=== PATIENT | female | born 1970 | race African-American/Black ===

== ENCOUNTER 2021-08-02 20:47 | Emergency (ER) | payer MEDICARE, MEDICAID ==
[~2021-08-02] VITALS: Ht 165.1 cm; Wt 90.0 kg
[2021-08-02] MEDS ORDERED: LIDOCAINE 5% PATCH TOP SCH (22:15)
[2021-08-02] MEDS ORDERED: ACETAMINOPHEN 325MG TABLET PO ONE (22:15)
[2021-08-02] MEDS ORDERED: BACL-141 MT (22:40)
[2021-08-02] MEDS ORDERED: IBUP-2029 MT (22:40)
[2021-08-02] MEDS ORDERED: LIDO700A15 TP (22:40)
[2021-08-02 22:47] VITALS: BP 173/93
== END 2021-08-02 23:59 | disposition home or self-care (01) ==
LOC: ER 20:47
DX: S46.911A Strain of unspecified muscle, fascia and tendon at shoulder and upper arm level, right arm, initial encounter (principal); I10 Essential (primary) hypertension; X58.XXXA Exposure to other specified factors, initial encounter; Y93.9 Activity, unspecified; Y92.9 Unspecified place or not applicable; Z90.710 Acquired absence of both cervix and uterus
CPT/HCPCS: 29105; 73030; 99283; A4565

== ENCOUNTER 2022-04-26 17:24 | Emergency (ER) | payer MEDICARE, MEDICAID ==
[~2022-04-26] VITALS: Ht 165.1 cm; Wt 82.0 kg
[~2022-04-26 17:24] MED LIST: BACL-141 MT; IBUP-2029 MT; LIDO700A15 TP
[2022-04-26] MEDS ORDERED: IBUP-2029 MT (23:49)
[2022-04-27 01:33] VITALS: BP 134/86
== END 2022-04-27 01:35 | disposition home or self-care (01) ==
LOC: ER 17:24
DX: M25.511 Pain in right shoulder (principal); Y93.89 Activity, other specified; Y92.89 Other specified places as the place of occurrence of the external cause; Z68.30 Body mass index [BMI] 30.0-30.9, adult; X50.3XXA Overexertion from repetitive movements, initial encounter
CPT/HCPCS: 73030; 99283